=== PATIENT | female | born 1990 | race Caucasian/White ===

== ENCOUNTER 2017-02-25 17:47 | Emergency (ER) | payer SELFPAY | END 2017-02-25 19:03 | disposition home or self-care (01) | LOC: ER 17:47 | DX: R10.11 Right upper quadrant pain (principal); R11.0 Nausea; F17.210 Nicotine dependence, cigarettes, uncomplicated; Z90.49 Acquired absence of other specified parts of digestive tract | CPT/HCPCS: 36415; 96361; 96374; 96375; J1885 ==

== ENCOUNTER 2017-03-06 16:42 | Emergency (ER) | payer SELFPAY | END 2017-03-06 18:17 | disposition home or self-care (01) | LOC: ER 16:42 | DX: R10.13 Epigastric pain (principal); R10.11 Right upper quadrant pain; F17.210 Nicotine dependence, cigarettes, uncomplicated; Z90.49 Acquired absence of other specified parts of digestive tract | CPT/HCPCS: 36415; 96374; 96375; J2550 ==